=== PATIENT | female | born 1985 | race African-American/Black ===

== ENCOUNTER 2023-04-13 05:47 | Day surgery (SDC) | payer OTHER ==
[2023-04-06 08:50] VITALS: BMI 26.6
[2023-04-06 09:13] LABS: Hematocrit 32.4 % (34.9-44.5); Hemoglobin 10.5 g/dL (12.0-15.5); Mean Corpuscular HGB CONC 32.4 g/dL (32.0-36.0); Mean Corpuscular Hemoglobin 27.6 pg (27.0-33.0); Mean Platelet Volume 9.5 fl (7.4-10.4); Platelet Count 298 10x3/uL (150-450); RBC Distribution Width 13.8 % (11.5-14.5); Red Blood Cell (RBC) Count 3.81 10x6/uL (3.90-5.03); White Blood Cell (WBC) Count 4.6 10x3/uL (3.5-10.5)
[2023-04-06 09:18] LABS: BHCG - Serum Negative (NEGATIVE); Pregs Control Background? CLEAR/WHITE (CLR/WHITE); Pregs Control Bar Appear? YES (CONTROL BAR)
[2023-04-06 09:19] LABS: INR-International Normal Ratio 1.1; Prothrombin Time 11.4 sec (9.5-12.1)
[2023-04-06 09:27] LABS: Anion Gap 12 mmol/L (10-20); BUN (Urea Nitrogen) 9 mg/dL (7.0-18.7); Calc. Creatinine Clearance 101 mL/min (70-130); Carbon Dioxide 24 mmol/L (22-29); Chloride 107 mmol/L (98-107); Estimated GFR 84; Glucose 94 mg/dL (70-105); Potassium 3.7 mmol/L (3.5-5.1); Sodium 139 mmol/L (136-145)
[2023-04-13] MEDS ORDERED: Heparin 10,000 UNITS/ 10 ML VIAL ONE (06:48)
[2023-04-13] MEDS ORDERED: Lidocaine 1% (PF) 30 ML VIAL ONE (06:49)
[2023-04-13] MEDS ORDERED: Midazolam HCl 2 mg/2 ml Vial ONE (07:15)
[2023-04-13] MEDS ORDERED: Lidocaine 1% PF 5 ML VIAL ONE (07:27)
[2023-04-13] MEDS ORDERED: PROPOFOL 20 ML ONE (07:27)
[2023-04-13] MEDS ORDERED: fentaNYL 50 mcg/mL 1 mL Vial ONE ×2 (07:27→07:44)
[2023-04-13] MEDS ORDERED: Isoproterenol 0.2 MG/1 ML AMP ONE (07:30)
[2023-04-13] MEDS ORDERED: PHENYLEPHRINE-NS 100 MCG/ML 10 ML SYRINGE ONE (07:44)
[2023-04-13] MEDS ORDERED: Phenylephrine 40 MG/NS 250 ML 250 ML ONE (07:44)
[2023-04-13] MEDS ORDERED: Lidocaine 2% PF 100 mg/5 ml Syringe ONE (07:44)
[2023-04-13] MEDS ORDERED: ePHEDrine Sulfate 50 MG/10 ML VIAL ONE (08:28)
[2023-04-13] MEDS ORDERED: Ondansetron PF 4 MG/2 ML Vial ONE (09:47)
== END 2023-04-13 12:20 | disposition home or self-care (01) ==
LOC: SDC 05:47
PROVIDERS: ATTEND Internal Medicine Cardiovascular Disease
PROC: 02584ZZ Destruction of Conduction Mechanism, Percutaneous Endoscopic Approach (ICD-10-PCS; principal; 2023-04-13)
PROC: 02K84ZZ Map Conduction Mechanism, Percutaneous Endoscopic Approach (ICD-10-PCS; principal; 2023-04-13)
PROC: B246ZZ4 Ultrasonography of Right and Left Heart, Transesophageal (ICD-10-PCS; principal; 2023-04-13)
DX: I47.10 Supraventricular tachycardia, unspecified (principal); I26.99 Other pulmonary embolism without acute cor pulmonale; Z86.711 Personal history of pulmonary embolism; Z90.49 Acquired absence of other specified parts of digestive tract; Z79.51 Long term (current) use of inhaled steroids; Z79.01 Long term (current) use of anticoagulants; Z79.82 Long term (current) use of aspirin; Z79.899 Other long term (current) drug therapy; Z92.89 Personal history of other medical treatment
CPT/HCPCS: 80048; 84703; 85027; 85610; 93005; 93623; 93653; C1730; C1894; C2630; J1644; J2001; J2250; J2405; J2704; J3010